=== PATIENT | female | born 1985 | race Hispanic/Latino ===

== ENCOUNTER 2019-07-09 14:55 | Emergency (ER) | payer SELFPAY ==
[~2019-07-09] VITALS: Ht 152.4 cm; Wt 122.5 kg
== END 2019-07-09 16:08 | disposition home or self-care (01) ==
LOC: ER 14:55
DX: R50.9 Fever, unspecified (principal); R05 Cough; J40 Bronchitis, not specified as acute or chronic
CPT/HCPCS: 99283

== ENCOUNTER 2019-07-16 20:31 | Emergency (ER) | payer OTHER ==
[~2019-07-16] VITALS: Ht 152.4 cm; Wt 122.5 kg
--- NOTE | 2019-07-16 22:36 | Diagnostic Imaging Report ---
EXAMINATION: CHEST 2 VIEWS INDICATION: SOB, difficulty breathing. COMPARISON: None FINDINGS: TUBES and LINES: None. LUNGS: Low lung volumes with vascular crowding. There is no evidence of pneumonia or pulmonary edema. PLEURA: No pleural effusion or pneumothorax. HEART AND MEDIASTINUM: The cardiomediastinal silhouette is unremarkable. BONES AND SOFT TISSUES: No acute osseous lesion. Soft tissues are unremarkable. UPPER ABDOMEN: No free air under the diaphragm. IMPRESSION: No acute thoracic abnormality. Signed by: Dr. Serge Keating MD on 07/16/2019 10:33 PM
== END 2019-07-16 23:00 | disposition home or self-care (01) ==
LOC: ER 20:31
DX: R05 Cough (principal); J04.10 Acute tracheitis without obstruction; J06.9 Acute upper respiratory infection, unspecified
CPT/HCPCS: 71046; 99283

== ENCOUNTER 2019-12-10 12:07 | Emergency (ER) | payer OTHER ==
[~2019-12-10] VITALS: Ht 152.4 cm; Wt 115.7 kg
[2019-12-10] MEDS ORDERED: DEXAMETHASONE 4 MG TAB PO STA (12:41)
[2019-12-10] MEDS ORDERED: KETOROLAC TROMETHAMINE 30 MG/ML VIAL IM STA (12:42)
--- NOTE | 2019-12-10 12:45 | Emergency Department Note ---
History of Present Illnes History of Present Illness Chief Complaint: Eye, Ear, Nose, Throat, Dental History of Present Illness This is a 34 year old female Chief Complaint Comment X 2 DAYS, INCREASED THROAT PAIN DESCRIBED ITCHING AND STABBING KNIVES. BILATERAL EAR ACHE. SUBJECTIVE FEVER. SHE HAS BEEN GARGLING WITH SALT WATER, AND LISTERINE RINSE. TOOK 400 MG IBUPROFEN @ 7AM HX OF TONSILITIS DR. CARLISLE EVALUATED PATIENT. SLIGHT SWELLING TO TONSILS, NO EXUDATE. NO DRAINAGE IN EAR CANALS. Historian: Patient Arrival Mode: Car Additional Treatment TOURIST INFORMATION ASSISTANT: SALT WATER GARGLE/ LISTERINE RINSE Engagement Liaison Required: No Onset (how long ago): day(s) (3) Location: throat Quality: sharp Radiation: Reports non-radiation Severity: moderate Onset quality: gradual Duration (how long): day(s) (3) Timing of current episode: constant Progression: worsening Chronicity: recurrent Context: Denies recent illness, Denies recent surgery Relieving factors: none Exacerbating factors: none Associated symptoms: Reports denies other symptoms Treatments prior to arrival: none Past Medical/Family History Physician Review I have reviewed the patient's past medical and family history. Any updates have been documented here. Past Medical History Recent Fever: Yes (SUBJECTIVE) Clinical Suspicion of Infectio: No New/Unexplained Change in Ment: No Past Medical History: Asthma Past Surgical History: None Other Last Tetanus: UTD Review of Systems Review of Systems Constitutional: Reports no symptoms EENTM: Reports as per HPI, Reports throat pain Cardiovascular: Reports no symptoms Respiratory: Reports no symptoms Gastrointestinal: Reports no symptoms Genitourinary: Reports no symptoms Musculoskeletal: Reports no symptoms Integumentary: Reports no symptoms Neurological: Reports no symptoms Psychological: Reports no symptoms Endocrine: Reports no symptoms Hematological/Lymphatic: Reports no symptoms Physical Exam Related Data Allergies: Coded Allergies: No Known Allergies (Unverified , 07/09/19) Triage Vital Signs Vital Signs Date Time Temp Pulse Resp B/P (MAP) Pulse Ox O2 Delivery O2 Flow Rate FiO2 12/10/19 12:28 98.2 59 18 130/63 100 Room Air Vital signs reviewed: Yes Physical Exam CONSTITUTIONAL Constitutional: Present well-developed, Present well-nourished HENT HENT: Present normocephalic, Present atraumatic, Present oropharynx clear/moist, Present nose normal, Present other (Tonsil swelling bilateral) HENT L/R: Present left TM normal, Present right TM normal, Present left ext ear normal, Present right ext ear normal EYES Eyes: Reports PERRL, Reports conjunctivae normal NECK Neck: Present ROM normal PULMONARY Pulmonary: Present effort normal, Present breath sounds normal CARDIOVASCULAR Cardiovascular: Present regular rhythm, Present heart sounds normal, Present capillary refill normal, Present normal rate GASTROINTESTINAL Abdominal: Present soft, Present nontender, Present bowel sounds normal GENITOURINARY Genitourinary: Present exam deferred SKIN Skin: Present warm, Present dry MUSCULOSKELETAL Musculoskeletal: Present ROM normal NEUROLOGICAL Neurological: Present alert, Present oriented x 3, Present no gross motor or sensory deficits PSYCHOLOGICAL Psychological: Present mood/affect normal, Present judgement normal Assessment & Plan Medical Decision Making MDM 34-year-old female presents for sore throat. Exam shows swollen tonsils and strep screen is negative. She was given Toradol and Decadron and will be discharged to follow-up with her primary doctor. Assessment & Plan Final Impression: (1) Pharyngitis Depart Disposition: HOME, SELF-CARE Last Vital Signs Date Time Temp Pulse Resp B/P (MAP) Pulse Ox O2 Delivery O2 Flow Rate FiO2 12/10/19 12:28 98.2 59 18 130/63 100 Room Air Medications in the ED Dexamethasone 10 mg ONCE STAT PO ; Start 12/10/19 at 12:41; Stop 12/10/19 at 12:42; Status UNV ОЛЬГА HAYES MD Dec 10, 2019 12:44
--- OUTSIDE RECORDS SUMMARY | 2019-12-10 12:57 | XMS REPORT | Continuity of Care Document ---
Author Author [facility] t Organization [facility] Address [address] [place] [address] Phone Unavailable Care Team Providers Care Video Effects Editor Name Role Phone NO, PCP PCP Unavailable HILDA CONTE Unavailable Payers Payer Name Policy Type Policy Number Effective Date Expiration Date S juli Cdc Review Covid19 [id number] [facility] Problems This patient has no known problems. Allergies, Adverse Reactions, Alerts Allergy Name Allergy Type Status Severity Reaction(s) Onset Date Inacti ve Date Treating Clinician Comments Source No Known Allergies DA Active U 2017-12-25 00:00:00 [facility] Medications This patient has no known medications. Procedures Procedure Date / Time Performed Performing Clinician Sour e X-ray of chest, two views 2019-07-16 00:00:00 HILDA CONTE I [facility] Encounters Start Date/Time End Date/Time Encounter Type Admission Type Attendi [facility] Care Department Encounter ID Source 2019-07-16 20:31:00 2019-07-16 23:00:00 Departed Emergency Room 1 HILDA CONTE [facility] [id number] [facility] 2019-07-09 14:55:00 2019-07-09 16:08:00 Departed Emergency Room [facility] [id number] [facility] 2018-08-18 16:01:00 2018-08-18 16:01:00 Emergency E [id number] [facility] Results Test Description Test Time Test Comments Results Result Comments Source CHEST 2 VIEWS 2019-07-16 22:31:00 [facility] [address] [place] [address] Patient Name: WILLOW LEAL MR #: [id number] : 1985 Age/Sex: 34/F Req #: [id number] Adm Physician: Ordered by: HILDA CONTE DO Report #: [id number] Location: ER Room/Bed: Procedure: [id number] DX/CHEST 2 VIEWS Exam Date: Exam Time: REPORT STATUS: Signed EXAMINATION: CHEST 2 VIEWS INDICATION: SOB, difficulty breathing. COMPARISON: None FINDINGS: TUBES and LINES: None. LUNGS: Low lung volumes with vascular crowding. There is no evidence of pneumonia or pulmonary edema. PLEURA: No pleural effusion or pneumothorax. HEART AND MEDIASTINUM: The cardiomediastinal silhouette is unremarkable. BONES AND SOFT TISSUES: No acute osseous lesion. Soft tissues are unremarkable. UPPER ABDOMEN: No free air under the diaphragm. IMPRESSION: No acute thoracic abnormality. Signed by: Dr. Domo Ruvalcaba MD on 07/16/2019 10:33 PM Dictated By: DOMO RUVALCABA MD 32 Transcribed By: JO-ANN on 07/16/192232 COPY TO: HILDA CONTE DO
[2019-12-10 14:41] VITALS: BP 116/69
== END 2019-12-10 14:42 | disposition home or self-care (01) ==
LOC: ER 12:54
DX: J02.9 Acute pharyngitis, unspecified (principal); H92.03 Otalgia, bilateral
CPT/HCPCS: 83518; 87070; 99283; J1885